=== PATIENT | female | born 1950 | race Caucasian/White ===

== ENCOUNTER → 2016-09-05 | Day surgery (SDC) | payer OTHER, MEDICARE ==
[2016-08-29 12:32] VITALS: Ht 160 cm; Wt 70.5 kg
[~2016-09-05] VITALS: Ht 160 cm; Wt 70.5 kg
[~2016-09-05] MED LIST: AMLO-110 PO; ASPCH81X PO; CHOL20009 PO; CLR10 PO; LIDOCAINE HCL 2% 2 ML VIAL (20MG/ML) ONE; MIDAZOLAM HCL 1 MG/ML 2ML VIAL ONE; MULT-506 PO; OMEG10007 PO; ONDANSETRON INJ 2 MG/ML 2 ML VIAL ONE; PROPOFOL IV EMULSION 10 MG/ML 20 ML VIAL IV ONE; SODIUM CHLORIDE 0.9% 500ML 500 ML IV ONE; TPRSR100 PO
[2016-09-05 10:29] VITALS: TEMP 36.5
--- NOTE | 2016-09-05 10:39 | Endo History and Physical ---
History & Physical Date of Service: Sep 05, 2016. Chief Complaint: Screening for polyps Referring Physician: Alejandra History of Present Illness 65 yo CF who presents for screening colonoscopy. Past Surgical History Hx Cardiac Surgery: No Hx Internal Defibrillator: No Hx Pacemaker: No Hx Abdominal Surgery: No Hx of Implantable Prosthesis: No Hx Post-Op Nausea and Vomiting: No Hx Cancer Surgery: No Hx Thoracic Surgery: No Hx Orthopedic: Yes (RT FOOT TOE REPAIR) Hx Urinary Tract Surgery: No Social History Smoking Status: Former Smoker Hx Substance Use: No Hx Alcohol Use: Yes (1 GLASS DAILY) Allergies Coded Allergies: Lisinopril (Verified Allergy, Unknown, COUGH, 09/05/16) Current Medications Reported Home Medications Medications Dose Route/Sig Max Daily Dose Days Date Category Vitamin D (Cholecalciferol) 2,000 Unit Tab 1 Tab PO QAM 08/29/16 Reported Multivitamin (Multivitamins) Tab 1 Tab PO QAM 08/29/16 Reported Toprol Xl (Metoprolol Succinate) 100 Mg Tabcr 1 Tab PO QAM 90 08/29/16 Reported Am[place]-3 (Fish Oil) 1 Ea Cap 1,200 Mg PO QAM 08/29/16 Reported Claritin (Loratadine) 10 Mg Tab 10 Mg PO QAM 08/29/16 Reported Aspirin Chewable (Aspirin) 81 Mg Chew 81 Mg PO QAM 08/29/16 Reported Norvasc (Amlodipine Besylate) 5 Mg Tab 5 Mg PO QAM 08/29/16 Reported Vital Signs Weight (Kilograms): 70.45 Height (Feet): 5 Height (Inches): 3 Date Time Temp Pulse Resp B/P Pulse Ox O2 Delivery O2 Flow Rate FiO2 09/05/16 10:29 36.5 88 20 151/91 97 Room Air Physical Exam General Appearance: WD/WN, no apparent distress Respiratory/Chest: Auscultation: breath sounds normal Cardiovascular: Heart Auscultation: RRR Abdomen: Bowel Sounds: normal Inspection & Palpation: soft, non-distended, no tenderness, guarding & rebound Assessment and Plan Assessment: 65 yo CF who presents for screening colonoscopy. Plan: Proceed with colonoscopy.
--- NOTE | 2016-09-05 11:15 | Discharge Instructions ---
Endoscopy Patient Instructions Date / Procedure(s) Performed Sep 05, 2016. Colonoscopy Allergy Information Coded Allergies: Lisinopril (Verified Allergy, Unknown, COUGH, 09/05/16) Discharge Date / Findings Sep 05, 2016. Colon polyp Rectal polyp Internal hemorrhoids Medication Instructions Stopped Medication(s): Aspirin and vitamins stopped 09-03-16 OK to resume all medications today as prescribed Reported Home Medications Medications Dose Route/Sig Max Daily Dose Days Date Category Vitamin D (Cholecalciferol) 2,000 Unit Tab 1 Tab PO QAM 08/29/16 Reported Multivitamin (Multivitamins) Tab 1 Tab PO QAM 08/29/16 Reported Toprol Xl (Metoprolol Succinate) 100 Mg Tabcr 1 Tab PO QAM 90 08/29/16 Reported [place]-3 (Fish Oil) 1 Ea Cap 1,200 Mg PO QAM 08/29/16 Reported Claritin (Loratadine) 10 Mg Tab 10 Mg PO QAM 08/29/16 Reported Aspirin Chewable (Aspirin) 81 Mg Chew 81 Mg PO QAM 08/29/16 Reported Norvasc (Amlodipine Besylate) 5 Mg Tab 5 Mg PO QAM 08/29/16 Reported Provider Instructions Activity Restrictions - No exercising or heavy lifting for 24 hours. - Do not drink alcohol the day of the procedure. - Do not drive a car or operate machinery until the day after the procedure. - Do not make any important decisions or sign important papers in 24 hours after the procedure. Following Day: - Return to full activity which may include returning to work/school. Diet Start your diet with liquids and light foods (jello, soup, juice, toast). Then eat your usual diet if not nauseated. Treatment For Common After Affects For mild abdominal pain, bloating, or excessive gas: - Rest - Eat lightly - Lie on right side Follow-Up Information Follow-up with Alejandra as scheduled Anesthesia Information What You Should Know You have had a procedure that required some medicine to reduce anxiety and discomfort. This treatment is called moderate sedation. After receiving the treatment, you may be sleepy, but you will be able to breathe on your own. The effects of the treatment may last for several hours. Follow these instructions along with Activity/Diet recommendations noted above: * Do NOT do anything where dizziness or clumsiness would be dangerous. * Rest quietly at home today, then you can be up and about tomorrow. * Have a responsible person stay with you the rest of today. * You may have had an I.V. today. If so, you may take the dressing off later today. Recommendations Call your doctor if: * Trouble breathing * Continuous vomiting for more than 24 hours * Temperature above 101 degrees * Severe abdominal pain or bloating * Pain not relieved by pain medicine ordered * There is increased drainage or redness from any incision * A large amount of rectal bleeding greater than 2-3 tablespoons. (If you had a polyp/s removed or have hemorrhoids, a small amount of blood - from the rectum is to be expected.) * You have any unanswered questions or concerns. IN THE EVENT OF A SERIOUS EMERGENCY, GO TO THE NEAREST EMERGENCY ROOM Your discharge instructions were prepared by provider Kamran Gaston. Patient Instructions Signature Page Bel Peng Patient (or Guardian) Signature/Date: I have read and understand the instructions given to me by my caregivers. Caregiver/RN/Doctor Signature/Date: The above-named patient and/or guardian has received patient instructions on this date. + Original Patient Signature Page (only) stays with chart. Please make copy for patient.
--- NOTE | 2016-09-05 11:17 | GI REPORT ---
Procedure Date: 09/05/2016 10:40 AM Procedure: Colonoscopy Indications: Screening for colorectal malignant neoplasm Medicines: Monitored Anesthesia Care Complications: No immediate complications. Estimated Blood Loss: Estimated blood loss: none. Procedure: Pre-Anesthesia Assessment: - Prior to the procedure, a History and Physical was performed, and patient medications and allergies were reviewed. The patient's tolerance of previous anesthesia was also reviewed. The risks and benefits of the procedure and the sedation options and risks were discussed with the patient. All questions were answered, and informed consent was obtained. Prior Anticoagulants: The patient has taken aspirin, last dose was 2 days prior to procedure. ASA Grade Assessment: II - A patient with mild systemic disease. After reviewing the risks and benefits, the patient was deemed in satisfactory condition to undergo the procedure. After I obtained informed consent, the scope was passed under direct vision. Throughout the procedure, the patient's blood pressure, pulse, and oxygen saturations were monitored continuously. The scope was introduced through the anus and advanced to the terminal ileum. The colonoscopy was performed without difficulty. The patient tolerated the procedure well. The quality of the bowel preparation was good. The terminal ileum, ileocecal valve, appendiceal orifice, and rectum were photographed. Findings: Two sessile polyps were found in the rectum and in the descending colon. The polyps were 5 to 7 mm in size. These polyps were removed with a hot snare. Resection and retrieval were complete. Non-bleeding internal hemorrhoids were found during retroflexion. The hemorrhoids were small. Impression: - Two 5 to 7 mm polyps in the rectum and in the descending colon, removed with a hot snare. Resected and retrieved. - Non-bleeding internal hemorrhoids. Recommendation: - Resume previous diet. - Continue present medications. - Repeat colonoscopy for surveillance based on pathology results. - Return to primary care physician as previously scheduled. Kamran Gaston DO 09/05/2016 11:16:18 AM This report has been signed electronically. Note Initiated On: 09/05/2016 10:40 AM I attest to the content of the Intraoperative Record and orders documented therein, exceptions below
--- NOTE | 2016-09-05 11:37 | Anesthesiology Progress Note ---
Anesthesia Post Op Note Date & Time Sep 05, 2016 at 11:36 Vital Signs Pain Intensity: 0 Vital Signs Past 12 Hours Date Time Temp Pulse Resp B/P Pulse Ox O2 Delivery O2 Flow Rate FiO2 09/05/16 11:24 84 20 113/77 96 Room Air 09/05/16 11:09 84 20 110/71 95 Room Air 09/05/16 10:29 36.5 88 20 151/91 97 Room Air Notes Mental Status: alert / awake / arousable, participated in evaluation Pt Amnestic to Procedure: Yes Nausea / Vomiting: adequately controlled Pain: adequately controlled Airway Patency, RR, SpO2: stable & adequate BP & HR: stable & adequate Hydration State: stable & adequate Anesthetic Complications: no major complications apparent
[2016-09-05 11:38] VITALS: BP 118/75; PULSE 68; O2SAT 96
== END | disposition home or self-care (01) ==
LOC: C.GI 10:04
PROVIDERS: ATTEND Internal Medicine
DX: Z12.11 Encounter for screening for malignant neoplasm of colon (principal); D12.4 Benign neoplasm of descending colon; D12.8 Benign neoplasm of rectum; K64.8 Other hemorrhoids; Z87.891 Personal history of nicotine dependence; Z79.82 Long term (current) use of aspirin; Z79.899 Other long term (current) drug therapy

== ENCOUNTER → 2016-09-07 | Outpatient (CLI) | payer OTHER, MEDICARE ==
[~2016-09-07] MED LIST changes: -LIDOCAINE HCL 2% 2 ML VIAL (20MG/ML) ONE; -MIDAZOLAM HCL 1 MG/ML 2ML VIAL ONE; -ONDANSETRON INJ 2 MG/ML 2 ML VIAL ONE; -PROPOFOL IV EMULSION 10 MG/ML 20 ML VIAL IV ONE; -SODIUM CHLORIDE 0.9% 500ML 500 ML IV ONE
[2016-09-07 16:58] LABS: BLOOD UREA NITROGEN 2 mg/dl (7-18); BUN/CREATININE RATIO 4.5 (10-20); CALCIUM 9.4 mg/dl (8.5-10.1); CARBON DIOXIDE 30 mmol/L (21-32); CHLORIDE 101 mmol/L (98-107); CREATININE 0.53 mg/dl (0.60-1.20); GLUCOSE 90 mg/dl (70-99); HDL CHOLESTEROL 85 mg/dl; POTASSIUM 3.5 mmol/L (3.5-5.1); SODIUM 138 mmol/L (136-145)
[2016-09-07 17:01] LABS: ALB/GLOB RATIO 0.8 (0.9-2); ALKALINE PHOSPHATASE 90 U/L (45-117); ALT/SGPT 29 U/L (12-78); AST/SGOT 66 U/L (15-37); CHOLESTEROL 207 mg/dl (0-200); CHOLESTEROL/HDL RATIO 2.4; LDL CHOLESTEROL CALCULATED 99 mg/dl; TRIGLYCERIDES 115 mg/dl (0-150); VERY LOW DENSITY LIPOPROT CALC 23 mg/dl
== END | disposition home or self-care (01) ==
LOC: C.LABBFT 11:29
PROVIDERS: ATTEND Physician Assistant Medical
DX: E55.9 Vitamin D deficiency, unspecified (principal); E78.5 Hyperlipidemia, unspecified